=== PATIENT | male | born 1955 | race Caucasian/White ===

== ENCOUNTER 2017-09-16 15:46 | Outpatient (CLI) | payer BC ==
[2017-09-16 17:20] LABS: Mean Corpuscular HGB CONC 34.9 g/dL (32.0-36.0); Mean Corpuscular Hemoglobin 33.3 pg (27.0-31.0); Mean Corpuscular Volume 95.2 fl (80.0-94.0); Mean Platelet Volume 7.6 fL (7.4-10.4); Platelet Count 149 thou/uL (130-400); RBC Distribution Width 11.3 % (11.5-14.5); Red Blood Cell (RBC) Count 4.21 mill/uL (4.70-6.10); White Blood Cell (WBC) Count 5.8 thou/uL (4.8-10.8)
== END 2017-09-16 15:47 | disposition home or self-care (01) ==
LOC: LABBT 15:46
PROVIDERS: ATTEND Internal Medicine Cardiovascular Disease
DX: Z01.812 Encounter for preprocedural laboratory examination (principal); R07.9 Chest pain, unspecified; R94.31 Abnormal electrocardiogram [ECG] [EKG]
CPT/HCPCS: 85027

== ENCOUNTER 2017-09-18 05:48 | Day surgery (SDC) | payer BC ==
[2017-09-16 16:02] VITALS: BMI 33.2
[2017-09-18 06:27] LABS: PTT 27.5 SEC (22.9-36.1); Prothrombin Time 13.2 SEC (12.0-14.7)
[2017-09-18] MEDS ORDERED: Diazepam 5 MG TAB ONE (06:36)
[2017-09-18] MEDS ORDERED: Lidocaine 1% (PF) 30 ML VIAL ONE (06:51)
[2017-09-18] MEDS ORDERED: Midazolam HCl 2 mg/2 ml Vial ONE (07:35)
[2017-09-18] MEDS ORDERED: Fentanyl 100 MCG/2 ML VIAL ONE (07:35)
[2017-09-18] MEDS ORDERED: Nitroglycerin 100MG/250ML BOT 250 ML ONE (07:48)
[2017-09-18] MEDS ORDERED: Sodium Chloride 0.9% 1,000 ML IV SCH (09:30)
[2017-09-18] MEDS ORDERED: Diazepam 5 MG TAB PO SCH (09:30)
[2017-09-18] MEDS ORDERED: Sodium Chloride 0.9% 10 ML ONE (10:15)
[2017-09-18] MEDS ORDERED: Iopamidol 370 76% 100 ML VIAL ONE (11:44)
--- NOTE | 2017-09-18 20:33 | EKG ---
Test Reason : FOR COMPARISON Blood Pressure : / mmHG Vent. Rate : 067 BPM Atrial Rate : 067 BPM P-R Int : 212 ms QRS Dur : 112 ms QT Int : 482 ms P-R-T Axes : -21 024 -53 degrees QTc Int : 509 ms Sinus rhythm with 1st degree A-V block T wave abnormality, consider inferolateral ischemia Prolonged QT Abnormal ECG When compared with ECG of 12-FEB-2016 17:29, NH interval has increased T wave inversion now evident in Anterolateral leads QT has lengthened Confirmed by YOUNG ASHBY, . SJosé Antonio ([id number]) on 09/18/2017 8:33:05 PM Referred By: LARRY Confirmed By:DR. Ivelisse VIDAL MD
--- NOTE | 2017-09-18 22:24 | DIS ---
FINAL DIAGNOSES: 1. Coronary artery disease, minimal small vessels prior to intracoronary nitroglycerin enlarged with nitroglycerin. 2. Hypercholesterolemia. 3. Paroxysmal atrial fibrillation and diagnosed recently, previous ablation. MEDICATIONS AT THE TIME OF DISCHARGE: 1. Eliquis 5 mg twice a day. 2. Stop aspirin, Eliquis will be resumed in 3 days. 3. Crestor 40 mg a day. 4. Isosorbide 30 mg a day. 5. Nitroglycerin if needed. FOLLOWUP: Follow up in the office in a month. Please see admission note for full details. Briefly, the catheterization revealed the followin. Left main normal. 2. LAD is small diameter vessel after nitroglycerin increase in size, but only about 20% stenosis se en. 3. Circumflex, no significant stenosis. 4. Right coronary, no significant stenosis. The vessel was ultimately visualized best with a 3DRC 4 -Persian catheters. The other catheters tended to go into the conus branch. 5. Patient will continue to lisinopril/hydrochlorothiazide. Please see admission note for full details. Briefly, Mr. Soto has been having exertional chest pressure. In addition, he had some EKG changes which potentially could be related to left ventricular hypertrophy versus ischemia. He underwent ca rdia catheterization today with the above listed findings. He does have exertional chest pressure. I think situation with this gentleman is that when he exerts himself, his vessels are still small, b ut if he continues to walk, he will feel better. I think the vessels that are spontaneously dilating with exercise. We will give him a trial of nitrates if he cannot take nitrates or wishes to go off nitrates for any reason, we could substitute Ranexa, also higher dose statin and take him off aspirin . Resume the Eliquis in a few days.
[2017-09-19] MEDS ORDERED: Aspirin 81 mg Enteric Coated Tablet PO SCH (09:00)
== END 2017-09-18 14:44 | disposition home or self-care (01) ==
LOC: CCL 05:48
PROVIDERS: ATTEND Internal Medicine Cardiovascular Disease
PROC: 4A023N7 Measurement of Cardiac Sampling and Pressure, Left Heart, Percutaneous Approach (ICD-10-PCS; principal; 2017-09-18)
DX: I25.10 Atherosclerotic heart disease of native coronary artery without angina pectoris (principal); I48.0 Paroxysmal atrial fibrillation; I10 Essential (primary) hypertension; E78.00 Pure hypercholesterolemia, unspecified; Z88.0 Allergy status to penicillin; Z88.5 Allergy status to narcotic agent; Z91.041 Radiographic dye allergy status; Z87.891 Personal history of nicotine dependence; Z82.49 Family history of ischemic heart disease and other diseases of the circulatory system
CPT/HCPCS: 76942; 85610; 85730; 93005; 93010; 93458; 99152; 99153; A4216; J1644; J2001; J2250; J3010

== ENCOUNTER 2018-02-17 08:19 | Emergency (ER) | payer BC ==
[2018-02-17 08:42] LABS: #Eosinphils 0.1 thou/uL (0.0-0.7); #Lymphocytes 2.1 thou/uL (1.20-3.40); #Monocytes 0.6 thou/uL (0.11-0.59); #Neutrophils 4.5 thou/uL (1.40-6.50); %Basophils 0.6 % (0.0-1.0); %Eosinophils 1.1 % (0.0-10.0); %Lymphocytes 29.1 % (21.0-51.0); %Monocytes 7.5 % (0.0-10.0); %Neutrophils 61.7 % (42.0-75.0); Hemoglobin 15.9 g/dL (14.0-18.0); Mean Corpuscular HGB CONC 33.5 g/dL (32.0-36.0); Mean Corpuscular Hemoglobin 32.2 pg (27.0-31.0); Platelet Count 187 thou/uL (130-400); RBC Distribution Width 11.6 % (11.5-14.5); Red Blood Cell (RBC) Count 4.94 mill/uL (4.70-6.10); White Blood Cell (WBC) Count 7.3 thou/uL (4.8-10.8)
[2018-02-17] MEDS ORDERED: Diltiazem 125 MG/25 ML ONE (08:45)
[2018-02-17] MEDS ORDERED: Magnesium 2 GM/50 ML BAG (IN WATER) ONE (08:47)
[2018-02-17] MEDS ORDERED: Magnesium 2 GM/NS 0.9% 100 ML 2 GM in Premix Bag 1 BAG IVPB SCH (09:00)
[2018-02-17] MEDS ORDERED: Diltiazem 125 MG in Sodium Chloride 0.9% 100 ML IVPB SCH (09:00)
[2018-02-17 09:32] LABS: ALT (SGPT) 27 U/L (8-55); AST (SGOT) 25 U/L (5-34); Albumin 4.5 g/dL (3.4-4.8); Alkaline Phosphatase 62 U/L (40-150); Anion Gap 13 mmol/L (10-20); BUN (Urea Nitrogen) 15 mg/dL (8.4-25.7); Bilirubin, Total 0.7 mg/dL (0.2-1.2); CK (CPK) 94 U/L (30-200); Calc. Creatinine Clearance 0 mL/min (70-130); Carbon Dioxide 31 mmol/L (23-31); Chloride 99 mmol/L (98-107); Estimated GFR-MDRD Greater than 90; Globulin 2.9 g/dL (2.4-3.5); Glucose 108 mg/dL (80-115); Potassium 3.6 mmol/L (3.5-5.1); Protein, Total 7.4 g/dL (5.8-8.1); Sodium 139 mmol/L (136-145)
[2018-02-17 09:33] LABS: CKMB 2.2 ng/mL (0-6.6); Troponin I Less than 0.010 ng/mL (< 0.028)
--- NOTE | 2018-02-17 09:43 | RAD ---
CHEST 1 VIEW: INDICATION: History of chest pain. COMPARISON: Prior exam dated 12/11/2002. FINDINGS: There is mild cardiomegaly. Lungs are clear. Pulmonary vasculature is within normal limits. No acu te osseous abnormality is evident. IMPRESSION: Mild cardiomegaly. POS: IMAN
== END 2018-02-17 12:41 | disposition home or self-care (01) ==
LOC: ERS 08:19
DX: I48.91 Unspecified atrial fibrillation (principal); I10 Essential (primary) hypertension; Z79.899 Other long term (current) drug therapy
CPT/HCPCS: 71045; 80053; 82550; 82553; 83880; 84484; 85025; 92960; 93005; 94760; 96361; 96365; 96366; 96376; 99152; J7050

== ENCOUNTER 2019-02-08 04:54 | Observation (INO) | payer BC ==
[2019-02-08 05:46] LABS: #Basophils 0.1 thou/uL (0.0-0.2); #Eosinphils 0.1 thou/uL (0.0-0.7); #Monocytes 0.4 thou/uL (0.11-0.59); %Basophils 1.3 % (0.0-1.0); %Eosinophils 2.7 % (0.0-10.0); %Lymphocytes 43.9 % (21.0-51.0); %Monocytes 8.8 % (0.0-10.0); %Neutrophils 43.4 % (42.0-75.0); Mean Corpuscular HGB CONC 34.7 g/dL (32.0-36.0); Mean Corpuscular Hemoglobin 33.3 pg (27.0-31.0); Mean Platelet Volume 8.6 fL (7.4-10.4); Platelet Count 130 thou/uL (130-400); RBC Distribution Width 11.6 % (11.5-14.5); Red Blood Cell (RBC) Count 4.22 mill/uL (4.70-6.10); White Blood Cell (WBC) Count 4.6 thou/uL (4.8-10.8)
[2019-02-08 05:53] LABS: INR-International Normal Ratio 1.1; PTT 31.9 SEC (22.9-36.1); Prothrombin Time 13.8 SEC (12.0-14.7)
[2019-02-08 06:08] LABS: ALT (SGPT) 20 U/L (8-55); AST (SGOT) 19 U/L (5-34); Albumin 3.9 g/dL (3.4-4.8); Alkaline Phosphatase 55 U/L (40-110); Anion Gap 12 mmol/L (10-20); BUN (Urea Nitrogen) 18 mg/dL (8.4-25.7); Bilirubin, Total 0.3 mg/dL (0.2-1.2); CK (CPK) 61 U/L (30-200); Calc. Creatinine Clearance 0 mL/min (70-130); Calcium 8.6 mg/dL (7.8-10.44); Carbon Dioxide 28 mmol/L (23-31); Chloride 101 mmol/L (98-107); Estimated GFR-MDRD 74; Globulin 2.1 g/dL (2.4-3.5); Glucose 95 mg/dL (80-115); Lipase 72 U/L (8-78); Potassium 3.7 mmol/L (3.5-5.1); Sodium 137 mmol/L (136-145)
[2019-02-08] MEDS ORDERED: Midazolam HCl 2 mg/2 ml Vial ONE ×3 (06:19→06:39)
[2019-02-08] MEDS ORDERED: Acetaminophen 325 MG TAB PO PRN (07:29)
[2019-02-08] MEDS ORDERED: Diazepam 5 MG TAB PO PRN (07:38)
--- NOTE | 2019-02-08 07:40 | RAD ---
Chest one view HISTORY: Chest pain. COMPARISON: 17 February 2018. FINDINGS: Silhouette is magnified by projection. Pulmonary vasculature are unremarkable. Mediastinum is midline. No confluent airspace consolidation or evidence of pneumothorax. monitoring specialist leads overlie the chest. IMPRESSION: No active cardiopulmonary abnormalities are demonstrated
[2019-02-08] MEDS ORDERED: Thiamine HCl 200 MG/2 ML VIAL IM SCH (08:00)
[2019-02-08] MEDS ORDERED: Diazepam 5 MG TAB PO SCH (08:00)
[2019-02-08 08:58] VITALS: BMI 33.5
[2019-02-08 09:00] LABS: Troponin I 0.015 ng/mL (< 0.028)
[2019-02-08] MEDS ORDERED: Bupropion 150 MG XL TAB PO SCH (09:00)
[2019-02-08] MEDS ORDERED: Magnesium Oxide 250 MG TAB PO SCH (09:00)
[2019-02-08] MEDS ORDERED: Multivitamin W/ Minerals 1 TAB PO SCH (09:00)
[2019-02-08] MEDS ORDERED: Folic Acid 1 MG TAB PO SCH (09:00)
[2019-02-08] MEDS ORDERED: Rosuvastatin 20 MG TAB PO SCH (09:00)
[2019-02-08] MEDS ORDERED: Apixaban 5 MG TAB PO SCH (09:00)
[2019-02-08] MEDS: Sodium Chloride 0.9% 500 ML IV SCH ×2 (11:20→16:08)
[2019-02-08 12:59] LABS: Troponin I Less than 0.010 ng/mL (< 0.028)
[2019-02-08] MEDS ORDERED: Potassium Chloride 20 MEQ TAB PO SCH (15:45)
[2019-02-08] MEDS ORDERED: Magnesium 2 GM/50 ML 2 GM in Premix Bag 1 BAG IVPB SCH (15:45)
[2019-02-08 17:07] VITALS: BP 123/77; TEMP 97.6
[2019-02-08] MEDS ORDERED: Nebivolol HCl 5 MG TAB PO SCH (17:30)
--- NOTE | 2019-02-08 20:58 | CON ---
DATE OF CONSULTATION: REASON FOR CONSULTATION: Recurrent atrial fibrillation. HISTORY OF PRESENT ILLNESS: Mr. Sebas Soto is a delightful 63-year-old man with recurrent atrial fibrillation. Mr. Stoo is a very long history of atrial fibrillation. He ultimately underwent ablation several years ago, which markedly improved the fibrillation and reduced the frequency; however, about 3 days ago, he went back into fibrillation. He can tell instantly when he goes into it. He has not really felt well since he stayed at home hoping that eventually the fibrillation ultimately did not resolve. He came here to the emergency room, where he was cardioverted. He wants to go home now, feels better now. PAST MEDICAL HISTORY: 1. Atrial fibrillation as mentioned. 2. Cardiac catheterization a year ago showing no obstructive coronary artery disease. 3. Gastric sleeve surgery, lost over 100 pounds and kept the weight off. MEDICATIONS: Prior to admission, 1. Bystolic 10 mg a day. 2. Sotalol 120 mg twice a day. 3. Lisinopril/hydrochlorothiazide 20/25 a day. 4. Omeprazole. 5. Rosuvastatin. 6. Apixaban 5 mg twice a day. 7. Aspirin 81 mg a day. REVIEW OF SYSTEMS: CONSTITUTIONAL: No significant weight gain or loss. VISION: No changes. HEARING: No changes. PULMONARY: No cough or wheezing. GASTROINTESTINAL: No nausea, vomiting, or diarrhea. SKIN: No rashes. NEUROLOGIC: No unilateral weakness or numbness. PSYCHIATRIC: No unusual depression or anxiety. PHYSICAL EXAMINATION: GENERAL: This is a pleasant gentleman, who is resting comfortably now, feels better. He is 6 feet tall, 247 pounds. HEENT: Eyes, sclerae nonicteric. Mouth, mucous membranes moist. NECK: Supple. No lymphadenopathy. LUNGS: Clear. CARDIAC: Normal S1, normal S2. There is no murmur, rub, or gallop. ABDOMEN: Soft, nontender. EXTREMITIES: No clubbing or cyanosis. There is no edema. SKIN: Warm and dry. PSYCHIATRIC: Mood and affect normal. NEUROLOGIC: Grossly normal. PERTINENT LABORATORY DATA: Potassium is 3.7. Troponin the highest was 0.015. Magnesium is 1.8. The patient had atrial fibrillation with a ventricular response about 110 beats per minute and now he is in sinus rhythm. ASSESSMENT: 1. Paroxysmal atrial fibrillation with recent persistent episode, successfully cardioverted. 2. Obesity, dramatically improved after gastric sleeve. 3. Hypertension. 4. Mild hypokalemia. PLAN: 1. Okay to go home on the same medicines he came in. We did add potassium 20 mEq a day. 2. Refer to Electrophysiology as an outpatient for repeat ablation. We have discussed this previously, he wishes to pursue that. 3. Echo will be done as an outpatient. Other medicines unchanged. Okay to go home. Job ID: [id number]
[2019-02-08] MEDS ORDERED: Sotalol HCl 80 MG TAB PO SCH (21:00)
[2019-02-09] MEDS ORDERED: Diazepam 5 MG TAB PO PRN (04:00)
[2019-02-09] MEDS ORDERED: Potassium Chloride 20 MEQ TAB PO SCH (08:00)
[2019-02-09] MEDS ORDERED: Magnesium Oxide 400 MG TAB PO SCH (09:00)
[2019-02-09] MEDS ORDERED: Nebivolol HCl 5 MG TAB PO SCH (09:00)
[2019-02-09] MEDS ORDERED: Thiamine 100 MG TAB PO SCH (09:00)
--- NOTE | 2019-02-11 02:13 | SS ---
DATE OF ADMISSION: 02/08/2019 DATE OF DISCHARGE: 02/08/2019 DISCHARGE DIAGNOSIS: 1. T-wave inversions. 2. Atrial fibrillation with rapid ventricular response. 3. Hypertension. 4. History of atrial fibrillation. HOSPITAL COURSE: The patient is a 63-year-old male, who initially presented to the hospital and was found to be in atrial fibrillation with rapid ventricular response. He underwent a cardioversion in the ER. However, at this time, he felt better, but his EKG showed some changes in his T-waves. At this time, he was admitted to the hospital for further evaluation. The patient at this time was kept and Cardiology was consulted. His electrolytes were replaced following his EKG, showed much improvement and patient was discharged home. He will follow up with Electrophysiology as an outpatient. An echo also will be done as an outpatient. PAST MEDICAL HISTORY: As of the following. 1. He has a history of atrial fibrillation. 2. Hypertension. 3. Hyperlipidemia. PAST SURGICAL HISTORY: He has had a cardiac catheterization and also gastric sleeve. ALLERGIES: HE HAS ALLERGIES TO PENICILLIN, IODINE, AND MORPHINE. MEDICATIONS: 1. Bystolic 10 mg daily. 2. Sotalol 120 mg daily. 3. Lisinopril-hydrochlorothiazide 20/25 daily. 4. Omeprazole daily. 5. Rosuvastatin. 6. Apixaban 5 mg twice a day. 7. Aspirin 81 mg daily. REVIEW OF SYSTEMS: All negative except for the ones mentioned above in the HPI. PHYSICAL EXAMINATION: VITAL SIGNS: Temperature 98.8, heart rate of 80, blood pressure of 130/60, 100% on room air. GENERAL: He is awake, alert, and oriented x3. Does not appear in distress. HEENT: Normocephalic, atraumatic. No lymphadenopathy noted. Pupils are equal and reactive to light. CV: S1 and S2 present. No murmurs, rubs, or gallops. ABDOMEN: Soft and nontender. Bowel sounds are present x2. EXTREMITIES: No edema. Pedal pulses are present x2. NEUROVASCULAR: No focal deficits noted. SKIN: No cuts, lesions or bruises noted. LABORATORY DATA: WBCs hemoglobin of 14.9, hematocrit of 40.5, platelets of 130. Coagulation, INR 1.1. Chemistry; sodium 137, potassium of 3.7, BUN of 18, creatinine 1.41. Troponin x3 are negative. Magnesium is 1.8. He did have a chest x-ray indicated, no acute abnormalities. ASSESSMENT AND PLAN: The patient is a very pleasant 63-year-old male, who presents to the hospital with atrial fibrillation, found to be in atrial fibrillation rapid ventricular response, cardioverted, and had some T-wave changes. 1. Atrial fibrillation with rapid ventricular response status post cardioverted, had some T-wave changes. The patient's electrolytes were replaced. He was seen by Cardiology, was okay to discharge home. Follow up with EP and also echocardiogram as an outpatient. 2. Hypertension, controlled. 3. Hyperlipidemia. We will continue his home medications. 4. Atrial fibrillation. He is on Eliquis, which has been resumed. Job ID: [id number]
--- NOTE | 2019-02-14 15:07 | EKG ---
Test Reason : Blood Pressure : / mmHG Vent. Rate : 102 BPM Atrial Rate : 234 BPM P-R Int : 000 ms QRS Dur : 108 ms QT Int : 398 ms P-R-T Axes : 000 003 -35 degrees QTc Int : 518 ms Atrial fibrillation with rapid ventricular response Nonspecific ST and T wave abnormality Abnormal ECG Confirmed by BRIAN CAMARILLO DO ([id number]), acquisition editor KEN CARSON ([id number]) on 02/14/2019 3:07:13 PM Referred By: Confirmed By:BRIAN CAMARILLO DO
== END 2019-02-08 18:35 | disposition home or self-care (01) ==
LOC: ERS 04:54 → 2SW 07:16
PROVIDERS: ADMIT Internal Medicine; ATTEND Internal Medicine
DX: I48.0 Paroxysmal atrial fibrillation (principal); I10 Essential (primary) hypertension; E87.6 Hypokalemia; E78.5 Hyperlipidemia, unspecified; E66.9 Obesity, unspecified; Z68.33 Body mass index [BMI] 33.0-33.9, adult; Z79.01 Long term (current) use of anticoagulants; Z79.82 Long term (current) use of aspirin; Z79.899 Other long term (current) drug therapy; Z88.0 Allergy status to penicillin; Z88.5 Allergy status to narcotic agent; Z91.041 Radiographic dye allergy status; Z98.84 Bariatric surgery status
CPT/HCPCS: 36415; 71045; 80053; 82550; 83690; 83735; 84484; 85025; 85610; 85730; 92960; 93005; 93010; 96361; 96365; 96366; 96372; 96374; 96375; 96376; 99152; G0378; J2250; J3411; J3475; J3490

== ENCOUNTER 2021-04-01 13:06 | Emergency (ER) | payer BC ==
[2021-04-01 13:57] LABS: #Basophils 0.1 thou/uL (0.0-0.2); #Eosinphils 0.1 thou/uL (0.0-0.7); #Lymphocytes 1.6 thou/uL (1.20-3.40); #Monocytes 0.5 thou/uL (0.11-0.59); #Neutrophils 3.9 thou/uL (1.40-6.50); %Eosinophils 1.5 % (0.0-10.0); %Lymphocytes 26.3 % (21.0-51.0); %Monocytes 8.5 % (0.0-10.0); %Neutrophils 62.8 % (42.0-75.0); Mean Corpuscular HGB CONC 35.5 g/dL (32.0-36.0); Mean Corpuscular Hemoglobin 33.8 pg (27.0-31.0); Mean Corpuscular Volume 95.2 fL (78.0-98.0); Platelet Count 142 thou/uL (130-400); Red Blood Cell (RBC) Count 4.44 mill/uL (4.70-6.10); White Blood Cell (WBC) Count 6.1 thou/uL (4.8-10.8)
[2021-04-01 14:15] LABS: ALT (SGPT) 19 U/L (8-55); AST (SGOT) 25 U/L (5-34); Albumin 3.7 g/dL (3.4-4.8); Alkaline Phosphatase 65 U/L (40-110); Anion Gap 14 mmol/L (10-20); BUN (Urea Nitrogen) 13 mg/dL (8.4-25.7); Bilirubin, Total 0.5 mg/dL (0.2-1.2); CK (CPK) 37 U/L (30-200); Calc. Creatinine Clearance 0 mL/min (70-130); Calcium 8.9 mg/dL (7.8-10.44); Carbon Dioxide 23 mmol/L (23-31); Chloride 104 mmol/L (98-107); Globulin 2.3 g/dL (2.4-3.5); Glucose 92 mg/dL (80-115); Potassium 4.2 mmol/L (3.5-5.1); Sodium 137 mmol/L (136-145)
[2021-04-01] MEDS ORDERED: Aspirin Chewable 81 MG TAB ONE (14:43)
== END 2021-04-01 14:47 | disposition home or self-care (01) ==
LOC: ERS 13:06
DX: I48.0 Paroxysmal atrial fibrillation (principal); I10 Essential (primary) hypertension; Z87.891 Personal history of nicotine dependence; Z79.899 Other long term (current) drug therapy
CPT/HCPCS: 71045; 80053; 82550; 84443; 84484; 85025; 93005

== ENCOUNTER 2021-05-07 16:34 | Emergency (ER) | payer MEDICARE, BC ==
[2021-05-07] MEDS ORDERED: Metoprolol Tartrate 5 MG/5 ML VIAL ONE ×2 (17:07→17:51)
[2021-05-07 18:34] LABS: #Lymphocytes 1.3 thou/uL (1.20-3.40); #Monocytes 0.4 thou/uL (0.11-0.59); #Neutrophils 4.8 thou/uL (1.40-6.50); %Basophils 0.7 % (0.0-1.0); %Eosinophils 0.7 % (0.0-10.0); %Lymphocytes 19.4 % (21.0-51.0); %Monocytes 6.4 % (0.0-10.0); %Neutrophils 72.8 % (42.0-75.0); Hemoglobin 14.9 g/dL (14.0-18.0); Mean Corpuscular HGB CONC 35.1 g/dL (32.0-36.0); Mean Corpuscular Hemoglobin 34.5 pg (27.0-31.0); Mean Corpuscular Volume 98.2 fL (78.0-98.0); Mean Platelet Volume 8.1 fL (7.4-10.4); Platelet Count 162 thou/uL (130-400); RBC Distribution Width 12.1 % (11.5-14.5); Red Blood Cell (RBC) Count 4.32 mill/uL (4.70-6.10); White Blood Cell (WBC) Count 6.5 thou/uL (4.8-10.8)
[2021-05-07 18:55] LABS: Acetaminophen Less than 6.0 mcg/mL (10.0-30.0); Alcohol 233 mg/dL (Less than 10); Salicylate Less than 8.0 mg/dL (15.0-30.0)
[2021-05-07 18:59] LABS: ALT (SGPT) 29 U/L (8-55); AST (SGOT) 33 U/L (5-34); Albumin 3.6 g/dL (3.4-4.8); Alkaline Phosphatase 66 U/L (40-110); Anion Gap 13 mmol/L (10-20); BUN (Urea Nitrogen) 12 mg/dL (8.4-25.7); Bilirubin, Total 0.3 mg/dL (0.2-1.2); Calc. Creatinine Clearance 0 mL/min (70-130); Calcium 8.6 mg/dL (7.8-10.44); Carbon Dioxide 26 mmol/L (23-31); Chloride 110 mmol/L (98-107); Globulin 2.7 g/dL (2.4-3.5); Glucose 101 mg/dL (80-115); Potassium 3.8 mmol/L (3.5-5.1); Protein, Total 6.3 g/dL (5.8-8.1); Sodium 145 mmol/L (136-145)
[2021-05-07] MEDS ORDERED: Diltiazem 125 MG/25 ML ONE (19:57)
== END 2021-05-07 21:44 | disposition left against medical advice (07) ==
LOC: ERS 16:34
DX: I48.91 Unspecified atrial fibrillation (principal); F10.129 Alcohol abuse with intoxication, unspecified; I10 Essential (primary) hypertension; Z87.891 Personal history of nicotine dependence; Z79.899 Other long term (current) drug therapy; Z79.82 Long term (current) use of aspirin; Z79.01 Long term (current) use of anticoagulants; W19.XXXA Unspecified fall, initial encounter
CPT/HCPCS: 36415; 70450; 71045; 72125; 72170; 80053; 80307; 82140; 83735; 84443; 84484; 85025; 93005; 96374; 96375

== ENCOUNTER 2022-06-01 11:12 | Outpatient (CLI) | payer MEDICARE, BC ==
[2022-06-01 12:42] LABS: #Basophils 0.1 10x3/uL (0.0-0.2); #Eosinphils 0.1 10x3/uL (0.0-0.5); #Monocytes 0.6 10x3/uL (0.0-1.1); #Neutrophils 2.1 10x3/uL (1.5-8.4); %Basophils 1.6 % (0.0-2.0); %Eosinophils 1.6 % (0.0-6.0); %Lymphocytes 27.8 % (18.0-47.0); %Neutrophils 53.7 % (40.0-75.0); Hemoglobin 11.5 g/dL (13.5-17.5); Mean Corpuscular HGB CONC 32.1 g/dL (32.0-36.0); Mean Corpuscular Hemoglobin 31.8 pg (27.0-33.0); Mean Corpuscular Volume 98.9 fl (81.2-95.1); Mean Platelet Volume 11.2 fl (7.4-10.4); Platelet Count 169 10x3/uL (150-450); RBC Distribution Width 16.7 % (11.5-14.5); Red Blood Cell (RBC) Count 3.62 10x6/uL (4.32-5.72); White Blood Cell (WBC) Count 3.8 10x3/uL (3.5-10.5)
[2022-06-01 13:06] LABS: Anion Gap 12 mmol/L (10-20); BUN (Urea Nitrogen) 14 mg/dL (8.4-25.7); Calc. Creatinine Clearance 0 mL/min (70-130); Calcium 8.3 mg/dL (7.8-10.44); Carbon Dioxide 25 mmol/L (23-31); Chloride 108 mmol/L (98-107); Estimated GFR 96; Glucose 118 mg/dL (80-115); Potassium 4.2 mmol/L (3.5-5.1); Sodium 141 mmol/L (136-145)
== END 2022-06-01 11:13 | disposition home or self-care (01) ==
LOC: LABBT 11:12
PROVIDERS: ATTEND Internal Medicine Cardiovascular Disease
DX: Z01.812 Encounter for preprocedural laboratory examination (principal)
CPT/HCPCS: 80048; 85025

== ENCOUNTER 2022-06-04 05:56 | Day surgery (SDC) | payer MEDICARE, OTHER ==
[2022-06-01 13:13] VITALS: BMI 27.8
[2022-06-04] MEDS ORDERED: PROPOFOL 200 MG/20 ML VIAL ONE (06:58)
[2022-06-04] MEDS ORDERED: Lidocaine 1% PF 5 ML VIAL ONE (06:58)
== END 2022-06-04 08:23 | disposition home or self-care (01) ==
LOC: SDC 05:56
PROVIDERS: ATTEND Internal Medicine Cardiovascular Disease
PROC: 5A2204Z Restoration of Cardiac Rhythm, Single (ICD-10-PCS; principal; 2022-06-04)
DX: I48.19 Other persistent atrial fibrillation (principal); I25.10 Atherosclerotic heart disease of native coronary artery without angina pectoris; I10 Essential (primary) hypertension; E78.00 Pure hypercholesterolemia, unspecified; K21.9 Gastro-esophageal reflux disease without esophagitis; Z79.01 Long term (current) use of anticoagulants; Z79.82 Long term (current) use of aspirin; Z79.899 Other long term (current) drug therapy; Z88.0 Allergy status to penicillin; Z88.5 Allergy status to narcotic agent; Z91.041 Radiographic dye allergy status
CPT/HCPCS: 92960; 93005; 93010; J2704

== ENCOUNTER 2022-12-10 06:01 | Day surgery (SDC) | payer MEDICARE, OTHER ==
[2022-12-07 10:50] VITALS: BMI 25.7
[2022-12-07 11:18] LABS: Hematocrit 36.6 % (38.8-50.0); Hemoglobin 11.7 g/dL (13.5-17.5); Mean Corpuscular Hemoglobin 28.7 pg (27.0-33.0); Mean Corpuscular Volume 89.7 fl (81.2-95.1); Mean Platelet Volume 10.2 fl (7.4-10.4); Platelet Count 152 10x3/uL (150-450); RBC Distribution Width 14.6 % (11.5-14.5); Red Blood Cell (RBC) Count 4.08 10x6/uL (4.32-5.72); White Blood Cell (WBC) Count 4.1 10x3/uL (3.5-10.5)
[2022-12-07 11:28] LABS: PTT 27.1 sec (22.0-33.0); Prothrombin Time 10.9 sec (9.5-12.1)
[2022-12-07 11:37] LABS: Anion Gap 13 mmol/L (10-20); BUN (Urea Nitrogen) 12 mg/dL (8.4-25.7); Calc. Creatinine Clearance 113 mL/min (70-130); Calcium 9.1 mg/dL (7.8-10.44); Carbon Dioxide 30 mmol/L (23-31); Chloride 103 mmol/L (98-107); Estimated GFR 98; Glucose 90 mg/dL (80-115); Potassium 4.5 mmol/L (3.5-5.1); Sodium 141 mmol/L (136-145)
[2022-12-10] MEDS ORDERED: Heparin 10,000 UNITS/ 10 ML VIAL ONE (06:47)
[2022-12-10] MEDS ORDERED: Isoproterenol 0.2 MG/1 ML AMP ONE ×2 (06:47→10:33)
[2022-12-10] MEDS ORDERED: Heparin 25,000 units/D5W 500 ML ONE (06:47)
[2022-12-10] MEDS ORDERED: Protamine Sulfate 50 MG/5 ML VIAL ONE (06:47)
[2022-12-10] MEDS ORDERED: fentaNYL 50 mcg/mL 1 mL Vial ONE ×5 (06:57→13:31)
[2022-12-10] MEDS ORDERED: Famotidine/PF 20 mg/2ml Vial ONE (07:24)
[2022-12-10] MEDS ORDERED: Midazolam HCl 2 mg/2 ml Vial ONE (07:35)
[2022-12-10] MEDS ORDERED: PROPOFOL 200 MG/20 ML VIAL ONE (07:56)
[2022-12-10] MEDS ORDERED: Lidocaine 1% PF 5 ML VIAL ONE (07:56)
[2022-12-10] MEDS ORDERED: NEOSTIGMINE 3 MG/3 ML SYR 3 MG/3 ML SYRINGE ONE (07:56)
[2022-12-10] MEDS ORDERED: Dexamethasone 20 MG/5 ML VIAL ONE (07:56)
[2022-12-10] MEDS ORDERED: Ondansetron PF 4 MG/2 ML Vial ONE (07:56)
[2022-12-10] MEDS ORDERED: PHENYLEPHRINE-NS 100 MCG/ML 10 ML SYRINGE ONE (07:56)
[2022-12-10] MEDS ORDERED: Glycopyrrolate 0.2 MG/ML 5 ML SYRINGE ONE (07:56)
[2022-12-10] MEDS ORDERED: Rocuronium Bromide 10 MG/ML (10ML VIAL) ONE (07:56)
[2022-12-10] MEDS ORDERED: Morphine 4 MG/ML VIAL ONE (11:32)
[2022-12-10] MEDS ORDERED: Ketorolac Tromethamine 30 MG/ML VIAL ONE (13:15)
== END 2022-12-10 16:25 | disposition home or self-care (01) ==
LOC: SDC 06:01
PROVIDERS: ATTEND Internal Medicine Cardiovascular Disease
DX: I48.0 Paroxysmal atrial fibrillation (principal); I25.10 Atherosclerotic heart disease of native coronary artery without angina pectoris; I10 Essential (primary) hypertension; E78.5 Hyperlipidemia, unspecified; Z79.01 Long term (current) use of anticoagulants; Z79.82 Long term (current) use of aspirin; Z87.891 Personal history of nicotine dependence; Z79.899 Other long term (current) drug therapy; Z98.890 Other specified postprocedural states; Z86.79 Personal history of other diseases of the circulatory system
CPT/HCPCS: 80048; 85027; 85347 ×2; 85610; 85730; 93005; 93622; 93623; 93656; 93657; C1732 ×2; C1760; C1894; J3010; 81001; J1100; J1644; J1885; J2250; J2270; J2405; J2704; J2720; S0028

== ENCOUNTER 2022-12-10 18:33 | Emergency (ER) | payer MEDICARE, OTHER ==
[2022-12-10 20:35] LABS: Bacteria/HPF None Seen HPF (None Seen); Bilirubin Negative (Negative); Blood, Urine 3+ (Negative); CAUTI Indications for Culture Acute Hematuria; Clarity Turbid (Clear); Glucose, Urine (Dipstick) 200 mg/dL (Negative); Ketone, Urine Negative (Negative); Leukocyte Negative Leu/uL (Negative); Nitrite Negative (Negative); Protein, Urine (Dipstick) 30 mg/dL (Neg-Trace); RBC/HPF Greater than 50 HPF (0-3); Specific Gravity, Urine 1.025 (1.002-1.036); Squamous Epithelial None Seen HPF (0-3); Urobilinogen Normal mg/dL (Less than 2); WBC/HPF 0-3 HPF (0-3)
[2022-12-10 20:39] LABS: Urine Culture Reflex No No
== END 2022-12-10 20:50 | disposition home or self-care (01) ==
LOC: ERS 18:33
DX: N40.0 Benign prostatic hyperplasia without lower urinary tract symptoms (principal); R33.9 Retention of urine, unspecified; I10 Essential (primary) hypertension; Z87.891 Personal history of nicotine dependence; Z79.899 Other long term (current) drug therapy; Z79.01 Long term (current) use of anticoagulants
CPT/HCPCS: 81001